=== PATIENT | female | born 1990 | race Caucasian/White ===

== ENCOUNTER 2018-03-19 15:34 | Emergency (ER) | payer OTHER ==
[2018-03-19 17:07] LABS: HIV (1/2) Antibody/Antigen Non-Reactive (NonReactive); HIV 1/2 INDEX 0.21 S/CO (<1.00); Hep C IgG Ab Non-Reactive (NonReactive); Hep C Index 0.24 S/CO (0-0.79)
[2018-03-19 17:48] LABS: HBSAB Concentration 29.14 mIU/mL; Hep B Surf AB Reactive (NonReactive)
== END 2018-03-19 16:31 | disposition home or self-care (01) ==
LOC: ERS 15:34
DX: Z77.21 Contact with and (suspected) exposure to potentially hazardous body fluids (principal)
CPT/HCPCS: 36415; 86706; 86803; 87389; 99283